=== PATIENT | female | born 1970 | race African-American/Black ===

== ENCOUNTER → 2016-10-14 | Outpatient (CLI) | payer OTHER ==
[~2016-10-14] MED LIST: AMARYL2 MG; CIPROFLOXACIN500 M1 PO; FLAGYL500 MG PO; KEFLEX500 MG PO; METFORMIN; NORCO 5-325 TA1 EACH PO; VICODIN 5-5001 EACH PO; ZOCOR 10 MG TAB10 MG
== END ==
LOC: RAD 08:47
DX: Z12.31 Encounter for screening mammogram for malignant neoplasm of breast (principal)

== ENCOUNTER → 2018-02-02 | Outpatient (CLI) | payer OTHER | LOC: RAD 08:49 | DX: Z12.31 Encounter for screening mammogram for malignant neoplasm of breast (principal); E11.9 Type 2 diabetes mellitus without complications ==

== ENCOUNTER → 2019-02-22 | Outpatient (CLI) | payer OTHER | LOC: BC 14:47 | DX: Z12.31 Encounter for screening mammogram for malignant neoplasm of breast (principal) ==